=== PATIENT | female | born 1955 | race Caucasian/White ===

== ENCOUNTER 2019-11-30 09:56 | Inpatient (IN) | payer MEDICAID, SELFPAY ==
[2019-11-30] VITALS (45 sets, daily range): BP systolic 111–192; BP diastolic 67–109; PULSE 57–111; RESP 14–34; TEMP 36.4–36.8; O2SAT 89–100; BMI 22.3
--- NOTE | 2019-11-30 10:02 | ECG_ITS ---
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 Measurements Intervals [place] Rate: 93 P: 57 ND: 135 QRS: 17 QRSD: 81 T: 43 QT: 325 QTc: 405 Interpretive Statements SINUS RHYTHM POSSIBLE LEFT ATRIAL ENLARGEMENT [-0.1mV P WAVE IN V1/V2] POSSIBLE RIGHT VENTRICULAR CONDUCTION DELAY [RSR (QR) IN V1/V2] No previous ECG available for comparison Electronically Signed On 11-30-2019 19:47:21 CDT by Dafne Ivy M.D. [id number] f
--- NOTE | 2019-11-30 10:02 | XRR_ITS ---
PROCEDURE INFORMATION: Exam: XR Chest, 1 View Exam date and time: 11/30/2019 10:12 AM Age: 64 years old Clinical indication: Chest pain; Type not specified TECHNIQUE: Imaging protocol: XR of the chest Views: 1 view. COMPARISON: No relevant prior studies available. FINDINGS: Lungs: No lung consolidation or pulmonary edema. Pleural space: No pleural effusion or pneumothorax. Heart/Mediastinum: The cardiac silhouette is not enlarged. The mediastinal contours are normal. Bones/joints: Minimal curvature of the upper thoracic spine convex to the left. XR/XR chest 1V portable [id number] IMPRESSION: No acute abnormality.
[2019-11-30 10:41] LABS: Basophils # 0.1 10^3/uL (0.0-0.1); Basophils % 1.1 %; Eosinophils # 0.2 10^3/uL (0.0-0.8); Eosinophils % 2.2 %; Hematocrit 45.7 % (37.0-47.0); Hemoglobin 14.7 g/dL (11.5-15.3); Lymphocytes # 2.3 10^3/uL (0.8-4.8); Lymphocytes % 26.8 %; Mean Corpuscular HGB Conc 32.2 g/dL (30.0-36.0); Mean Corpuscular Hemoglobin 28.4 pg (28.0-34.0); Mean Corpuscular Volume 88.2 fL (81-99); Mean Platelet Volume 11.5 fL (7.4-10.4); Monocytes # 0.5 10^3/uL (0.2-0.9); Neutrophils # 5.36 10^3/uL (1.8-7.7); Neutrophils % 63.4 %; Nucleated Red Blood Cells % 0 %; Platelet Count 217 10^3/cmm (130-400); Red Blood Count 5.18 10^6/uL (4.1-5.3); White Blood Count 8.5 10^3/uL (4.0-10.0)
--- NOTE | 2019-11-30 10:42 | W.ED.CHESTPA ---
HPI - Chest Pain General: Chief Complaint: Chest Pain Stated Complaint: chest pain Time Seen by Provider: 11/30/19 10:01 History of Present Illness: HPI narrative: 64-year-old female presents emergency room with complaints of chest pain just intermittently for the last 3 months.. She notes worsening of her chest pain with exertion she usually can walk something short of 100 yards and then will start to get significant squeezing pressure sensation. She takes nitro been taking 2 to 3/day it does relieve her chest pain she has been taking baby aspirin but at times displaces it under her tongue. She does know And she is not been seeing anyone recently either for primary care or for cardiology. She was previously on antihypertensive and I hyperlipidemic's as well as Plavix and stopped all those about 1 week after getting a stent. Her last stent was about 2 years ago. MD complaint: chest heaviness and chest discomfort Pertinent past history: coronary artery disease, prior [place] and [employer] Onset (ago): month(s) (3) Timing of current episode: episodic and increasing Prior episodes: Yes Onset: during exertion Pain location: substernal and left chest Pain radiation: left arm, back and left shoulder Severity: severe Quality: tightness and heaviness Relieving factors: nitroglycerin and rest Exacerbating factors: exertion Associated symptoms: Reports diaphoresis, dyspnea and nausea; Deny abdominal pain, fever(s), leg edema, palpitations, sense of impending doom, syncope or vomiting Treatment prior to arrival: aspirin and nitroglycerin Review of Systems Const: Reports: diaphoresis; Denies: fever(s) ENMT: Denies: throat pain, ear or mastoid pain, nasal discharge or nasal congestion Card: Denies: palpitations or syncope Resp: Reports: dyspnea GI: Reports: nausea; Denies: abdominal pain or vomiting : Denies: flank pain, difficulty voiding, dysuria, urinary frequency or urinary urgency Skin/Breast: Denies: rash or pruritus PFSH ED PFSH: Medical History (Updated 11/30/19 @ 11:38 by Jose Rafael Jackson DO) Coronary artery disease Coronary stent patent Hyperlipidemia Hypertension Social History (Updated 11/30/19 @ 10:46 by Jose Rafael Jackson DO) Smoking and tobacco status: current every day smoker Alcohol intake: never Physical Exam Const: COMMON NORMALS: average body habitus, patient oriented x3 and alert GENERAL APPEARANCE: cooperative, comfortable, well kempt and well developed NUTRITIONAL APPEARANCE: obese ORIENTATION/CONSCIOUSNESS: Yes awake, Yes oriented to person and Yes oriented to place Neck/C-Spine: COMMON NORMALS: no meningeal signs Resp: COMMON NORMALS: normal respiratory effort, No retractions, No use of accessory muscles and clear to auscultation bilaterally AUSCULTATION: clear to auscultation bilaterally Cardio: COMMON NORMALS: regular rate and regular rhythm RATE: regular rate RHYTHM: regular rhythm HEART SOUNDS: no murmurs GI: COMMON NORMALS: Normal to inspection, nondistended, normoactive bowel sounds present, Soft to palpation and No hepatosplenomegaly present PALPATION: Yes Soft to palpation and Yes No hepatosplenomegaly present : COMMON NORMALS: Yes no CVA tenderness BLADDER/KIDNEY EXAM: Yes no CVA tenderness Back/Pelvis: COMMON NORMALS: no CVA tenderness LUMBAR SPINE/LOWER BACK: Yes normal to inspection Extremity: COMMON NORMALS: no clubbing, cyanosis or edema, no calf tenderness and no pedal edema Neuro: COMMON NORMALS: patient oriented x3 SENSORIUM/ORIENTATION: Yes alert, Yes oriented to person and Yes oriented to place MENINGEAL SIGNS: Yes no meningeal signs Psych: APPEARANCE: Yes well kempt Skin: COMMON NORMALS: no rashes or lesions noted and turgor normal GENERAL SKIN EXAM: no rashes or lesions noted and turgor normal Course Vital Signs: Vital signs: Vital Signs Temperature 97.8 F 11/30/19 09:58 Pulse Rate 111 H 11/30/19 09:58 Respiratory Rate 18 11/30/19 09:58 Blood Pressure 181/85 11/30/19 09:58 Pulse Oximetry 94 11/30/19 09:58 MDM - Chest Pain MDM Narrative: Medical decision making narrative: She has escalating angina over quite an impressive period of time. We will put her on topical nitro give her IV Lopressor and oral Lopressor. Consult to Dr. Marin and will admit to him Lab Data: Labs: Lab Results 11/30/19 11/30/19 11/30/19 Range/Units 10:32 10:32 10:32 WBC 8.5 (4.0-10.0) 10^3/ uL RBC 5.18 (4.1-5.3) 10^6/u L Hgb 14.7 (11.5-15.3) g/dL Hct 45.7 (37.0-47.0) % MCV 88.2 (81-99) fL MCH 28.4 (28.0-34.0) pg MCHC 32.2 (30.0-36.0) g/dL RDW 14.0 (12.1-15.1) % Plt Count 217 (130-400) 10^3/c mm MPV 11.5 H (7.4-10.4) fL Neut % (Auto) 63.4 % Lymph % (Auto) 26.8 % [place] % (Auto) 6.0 % Eos % (Auto) 2.2 % Baso % (Auto) 1.1 % Neut # (Auto) 5.36 (1.8-7.7) 10^3/u L Lymph # (Auto) 2.3 (0.8-4.8) 10^3/u L [place] # (Auto) 0.5 (0.2-0.9) 10^3/u L Eos # (Auto) 0.2 (0.0-0.8) 10^3/u L Baso # (Auto) 0.1 (0.0-0.1) 10^3/u L Nucleated RBC % (a uto) 0 % Nucleated RBCs # 0.0 /100WBC Sodium 142 (136-145) mmol/L Potassium 4.2 (3.5-5.1) mmol/L Chloride 105 (98-107) mmol/L Carbon Dioxide 25 (22-29) mmol/L Anion Gap 16.2 (5-19) Creatinine 0.6 (0.5-0.9) mg/dL GFR Calculation 100.3 (90-130) mL/min Glucose 87 (65-115) mg/dL Calcium 9.4 (8.5-10.5) mg/dL Total Bilirubin 0.3 (0.15-1.2) mg/dL AST 5 (0-32) U/L ALT < 5 (0-33) U/L Troponin T Baselin e 15 H (0-10) ng/L Discharge Plan Discharge Patient Disposition: Admitted As Inpatient Clinical Impression: Angina pectoris, Hypertension, Coronary artery disease, Hyperlipidemia Condition: Stable Coding Level of Care Code ED Auditing Control Clerk for Chg Fwd Exam Comprehensive
[2019-11-30] MEDS: enoxaparin 60 mg/0.6 mL Syringe SUBCUT (10:43)
[2019-11-30] MEDS: nitroglycerin 1 gm/inch oint Pkt 0.5 INCH TOPICAL (10:43)
[2019-11-30 11:05] LABS: Alanine Aminotransferase < 5 U/L (0-33); Aspartate Amino Transferase 5 U/L (0-32); Calcium 9.4 mg/dL (8.5-10.5); Carbon Dioxide 25 mmol/L (22-29); Glomerular Filtration Rate 100.3 mL/min (90-130); Glucose 87 mg/dL (65-115); Total Bilirubin 0.3 mg/dL (0.15-1.2)
[2019-11-30 11:07] LABS: Troponin(5th) Baseline 15 ng/L (0-10)
[2019-11-30 11:10] LABS: Anion Gap 16.2 (5-19); Chloride 105 mmol/L (98-107); Potassium 4.2 mmol/L (3.5-5.1); Sodium 142 mmol/L (136-145)
--- NOTE | 2019-11-30 12:01 | PM.HP ---
Providers/Chief Complaint Admitting Physician: Dmitry Bazan MD Chief Complaint: chest pain History of Present Illness Ness Nesbitt is a 64 year old female with past medical history of coronary artery disease status post PCI of OM in [place] about 2 years ago, smoking, hypertension, hyperlipidemia is here for worsening chest pain. Patient does not take any home medications other than aspirin. According to the patient she started noticing chest pain about 2 to 3 months ago. This has been worsening in frequency and intensity. Now she can hardly walk a few feet before getting chest pain. She had intermittent 2-3 episodes of severe chest pain this morning when she decided to come to the emergency room. She describes the pain as substernal, squeezing severe pressure that radiates to the left arm. Her blood pressure was found to be uncontrolled on presentation and was 181/85 mmHg. Patient continues to smoke daily. She denies any bleeding problems. Her initial troponin is that event is 15. EKG does not show acute ischemic changes. Review of Systems Narrative: CONSTITUTIONAL: No fever chills weight loss or gain or night sweats. [] HEENT: Normocephalic, atraumatic.[] RESPIRATORY: No cough, sputum, hemoptysis or wheezing.[] CARDIOVASCULAR: No shortness of breath, chest pain, PND, orthopnea, lower extremity edema, presyncope or syncope. [] GI: no nausea vomiting diarrhea. [] APPEALS COORDINATOR: No numbness, tingling, weakness or loss of function in any part of the body. [] MUSCULOSKELETAL: No knee or joint pain or rashes. [] Medications/Allergies Home Medications Medication Instructions Recorded Confirmed Last Taken Type No Known Home Medications 11/30/19 11/30/19 Unknown History Allergies Allergy/AdvReac Type Severity Reaction Status Date / Time No Known Allergies Allergy Verified 11/30/19 10:00 PFSH Acute PFSH: Medical History Coronary artery disease Coronary stent patent Hyperlipidemia Hypertension Social History Smoking and tobacco status: current every day smoker Alcohol intake: never Vitals/I&O/Wt Last Vital Signs Temp 97.8 F 11/30/19 09:58 Pulse 111 H 11/30/19 09:58 Resp 18 11/30/19 09:58 BP 181/85 11/30/19 09:58 Pulse Ox 94 11/30/19 09:58 Weight last 48 hrs Weight 130 lb Physical Exam Narrative: EXAM NARRATIVE: GENERAL: Patient is alert, awake and oriented x3. [] NECK: No jugular vein distension. [] HEENT: No cyanosis. No icterus. No pallor. [] HEART: Regular S1 and S2. No murmur, rub or gallop. [] LUNGS: Clear to auscultate bilaterally. [] ABDOMEN: Soft, nontender and nondistended. Positive bowel sounds. No guarding, rebound or tenderness. [] CENTRAL NERVOUS SYSTEM: Grossly nonfocal. [] EXTREMITIES: Lower extremities with no edema bilaterally. Pulses palpable in the lower extremities, both dorsalis pedis and posterior tibial. [] Data : 11/30/19 10:32 11/30/19 10:32 A&P Assessment and plan (1) Unstable angina: Status: Acute (2) Hyperlipidemia: Status: Acute (3) Coronary artery disease: Status: Acute (4) Hypertension: Status: Acute (5) Tobacco abuse: Status: Acute Patient is describing typical chest pain that is worsening in intensity and frequency. Has been having on and off chest pain since morning today. Currently she is chest pain-free. Her symptoms are concerning for unstable angina. Her troponin is negative. EKG does not show acute ischemic changes. We will recommend proceeding with coronary angiography with possible intervention as her symptoms are consistent with unstable angina. I had a detailed discussion about risk and benefits of the procedure. I described the risks including bleeding, infection, abnormal heart rhythm, kidney function worsening, heart attack, stroke or . Patient understands the risks and benefits and wants to proceed with the procedure. N.p.o. except meds. We will proceed with coronary angiography today. High intensity statin therapy. Continue aspirin. We will initiate metoprolol 50 mg twice daily. Order echocardiogram. I have strongly recommended quitting smoking. Patient verbalized understanding. Attestations Medical Necessity Statement*: Care expected to cross 2 midnights. Patient has unstable angina and will be needing coronary angiography with possible intervention. Coding Level of Care Code Acute Pmo Consultant for [facility] Fwd Diagnoses Unstable angina I20.0 Hyperlipidemia E78.5 Coronary artery disease I25.10 Hypertension I10 Tobacco abuse Z72.0
--- NOTE | 2019-11-30 12:02 | ECG_ITS ---
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 Measurements Intervals [place] Rate: 72 P: 56 IA: 132 QRS: 15 QRSD: 86 T: 36 QT: 368 QTc: 403 Interpretive Statements SINUS RHYTHM POSSIBLE LEFT ATRIAL ENLARGEMENT [-0.1mV P WAVE IN V1/V2] POSSIBLE RIGHT VENTRICULAR CONDUCTION DELAY [RSR (QR) IN V1/V2] Compared to ECG 11/30/2019 10:07:43 No significant changes Electronically Signed On 11-30-2019 20:15:18 CDT by Dafne Ivy M.D. [id number]
[2019-11-30] MEDS: metoprolol tartrate 25 mg Tablet PO (12:50)
[2019-11-30] MEDS: diphenhydrAMINE 50 mg Capsule PO (12:51)
[2019-11-30] MEDS: aspirin 325 mg Tablet PO (12:51)
[2019-11-30] MEDS: metoprolol tartrate 1 mg/1 mL SDV 5 mL 5 MG IV (12:52)
[2019-11-30] MEDS: D5-NS 0.45% + KCL 20 mEq 20 MEQ/1,000 ML BAG 100 MEQ IV (12:53)
[2019-11-30] MEDS: sodium chloride 0.9% 1,000 ML 50 ML IV (13:11)
[2019-11-30 13:19] LABS: Troponin 5 2HR 15.16 ng/L (0-10); Troponin 5 2HR Delta 0.16 ABS# (0-10)
[2019-11-30 14:00] LABS: Blood Urea Nitrogen 7 mg/dL (8-23); Osmolality Calculated 291 mOsm/kg (285-295)
[2019-11-30 14:01] LABS: Albumin Level 0.2 g/dL (3.5-5.2); Alkaline Phosphatase < 5 IU/L (35-105); Globulin 5.8 g/dL (1.3-4.6)
--- NOTE | 2019-11-30 16:14 | XACV_ITS ---
Exam Room: [facility] Ht: 163 cm Wt: 59 kg BSA: 1.64 m2 Gender: Female : 1955 Any Known Allergies: No known allergies Exam Priority: Routine Procedure(s): Procedure Description: Diagnostic procedure Procedure Description: PCI procedure Procedure Description: Drug Eluting Coronary Stent Procedure Description: PTCA Procedure Description: Miscellaneous Procedure Description: ACT Procedure Description: Coronary Angiography Diagnostic Cath Status: Urgent Diagnostic Findings * CX has mild mid 10% stenosis. First OM branch has a patent stent.. * Proximal Left Anterior Descending Coronary Artery: Severe 95% stenosis, RANIJT: 0 flow. There is a medium sized diagonal artery that has proximal to mid 70% stenosis.. * mRCA: Mild 30 % stenosis, RANJIT: 3 flow. * LM has 0% stenosis. * 1st Diag: Moderate 70% stenosis, RANJIT: 3 flow. * Coronary angiography shows right dominance. PCI Status: Urgent PCI Indication: Other Interventional Findings * We engaged the left main artery using a XB 3.0 guide catheter. A 0.014 run-through guidewire was used to cross the lesion and was placed on the distal LAD. We used a 2.5 x 12 mm semi-compliant balloon to predilate the proximal LAD stenosis. This was followed by placement of a 3.0 x 18 mm resolute Hima drug-eluting stent. We postdilated the stent using a 3.25 x 15 mm NC balloon. At this time final angiogram was obtained that showed RANJIT-3 flow, excellent stent expansion and no residual stenosis. * Proximal Left Anterior Descending Coronary Artery: 95% stenosis treated with AB TREK 2.50X12 RX BALLOON, T Shawn HIMA 3.0X18 JEFF, and MDT ISAURO EUPHORA RX [id number] BALLOON. 0% residual stenosis, RANJIT: 3 flow. Conclusions 1. Diagonal artery is small to medium sized. Recommend managing medically. 2. There is severe coronary artery disease with two vessel disease. 3. Proximal Left Anterior Descending Coronary Artery was treated with two Balloon and Drug Eluting Stent. Recommendations * Admit to CSU. * Aspirin and Plavix for 1 year. * High intensity statin therapy. * Initiating beta-yuniel and lisinopril. * Medical therapy for small to medium sized diagonal artery. * Order echocardiogram. Pressures Phase:Rest AO : 155 / 72 ( 104 ) @ 12:04:00 PM 139 / 69 ( 100 ) @ 12:08:00 PM 129 / 80 ( 103 ) @ 12:13:00 PM Clinical Evaluation EBL: 5mL-10mL Procedural Details Procedure Consent Obtained. Pre-Procedure Time Out. Identified patient by full name and date of as verbalized by the patient/guarantor. Does the consent match the physician's order: Yes. Accurate & Complete Informed Consent: Yes. Inpatient/Outpatient History & Physical on Chart: Yes. If H&P is completed, is and addenduem needed: No; If yes, is the addendum complete: N/A. Visualize and Verify Site with Patient/Guarantor: N/A. Relevant Radiology Images available: N/A. Pre-op teaching completed and patient verbalized understanding. The risks, benefits, and alternatives of sedation and/or procedure were discussed by physician. The patient agrees to continue. Procedure started. [facility] Clinical Fraility Score: 3: Managing Well. 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 Chest Pain Symptom Assessment: Typical Angina Symptoms. Cardiovascular Instability: No. Correct patient, site and procedure confirmed by cath team. PERRLA. Strong, equal hand braille transcriber bilaterally. Lungs clear x 5 lobes. IV Site on Arrival: 20 gauge in the right anticubital. IV Fluids: 0.9% NaCl at KVO. 0 mL infused prior to manufacturing laborer. Pre Procedural Pulses: bilateral radial was 3+. Oxygen started at 2liters/min via nasal canula. Baseline sample Acquired. HR: 61 BPM. Physician arrived. Equipment: 6F - Radial. Cardiac Cath Pack. ACIST Manifold Kit Model BT 2000. Heparinized Saline (2 units/mL), 1000 mL bag. bilateral groins was prepped with chloroprep then draped in the usual sterile fashion. right radial was prepped with chloroprep then draped in the usual sterile fashion. Baseline sample Acquired. HR: 58 BPM. Physician scrubbed in. Immediate Pre-Procedure Time Out. Correct Patient: Yes; Correct Procedure: Yes; Correct Site: Yes; Correct Patient Position: Yes; Correct Supplies: Yes; Dried Flammable Prep: Yes; Blood Products Available: N/A;. Lidocaine 1% infiltrated to the right radial. Arterial access obtained. A 5 indian TIG catheter in over wire. Multiple views taken of left coronary artery. Catheter redirected to the RCA. Catheter out. Inventory is CRD 6FR XB 3 GUIDE. 6 indian XB 3 guide catheter was inserted over the wire. ACT drawn. Results 247 seconds. Therapeutic limits - pre-heparin administration 90-150 seconds and monitoring heparin during a vascular procedure >250 seconds. 4 fr TR 120 cm Straight Glidecath inserted through the guide catheter over the wire. Glidecath, wire and Guide Catheter out. Pt has arterial spasms. Physician unable to use radial approach due to arterial spasms. Moving to femoral approach. Lidocaine 1% infiltrated to the right groin. Arterial access obtained with micropuncture set. 6 indian XB 3 guide catheter was inserted over the wire. Runthrough guidewire was advanced through the guide catheter to lesion in the mid LAD. Inflation number : 1 A AB TREK 2.50X12 RX BALLOON was prepped and advanced across the Prox LAD , then inflated to 12 ESTHER for 0:20 seconds. Inflation number: 2 The AB TREK 2.50X12 RX BALLOON was reinflated across the Prox LAD, to 0 ESTHER for 0:00 seconds. Inflation Number : 3 A GINNA Escobar HIMA 3.0X18 JEFF -Lot Number# [id number] exp date 07/13/2021 was prepped and advanced across the Prox LAD. The stent was deployed at 12 ESTHER for 0:17 seconds. Inflation number : 4 Agusto BOX EUPHORA RX [id number] BALLOON was prepped and advanced across the Prox LAD , then inflated to 16 ESTHER for 0:14 seconds. Balloon out. Stent balloon out over wire. A TR 120 cm Straight Glidecath 4 Fr was advanced over the wire and used for. Results checked. Wire out. Guide catheter out. ACT drawn. Results 193 seconds. Therapeutic limits - pre-heparin administration 90-150 seconds and monitoring heparin during a vascular procedure >250 seconds. Physician scrubbed out. A TR Band was successful obtaining hemostatsis at the Right Radial artery insertion site. A Suture was successful obtaining hemostatsis at the Right Femoral artery insertion site. TR band placed. Hemostasis obtained. Sheath(s) sutured into position with 2-0 silk and sterile 4x4's and Op-site applied over the site. No oozing or signs and symptoms of hematoma noted. Arterial sheath flushed and connected to tranducer and pressure bag with heparinized saline. Post Procedure: Pulses reassessed and unchanged. PERRLA. Strong, equal hand braille transcriber bilaterally. No VTE prophylaxis required. Medication's Wasted: Nitro = 49.45 mg. Total IV fluids: 350 mL. Post-op diagnosis: severe prox LAD stenosis. Complications: none. PCI Indication: unstable angina. Estimated blood loss: 5mL-10mL. Procedure completed. Patient transferred by bed to 1st floor. Vital chart was stopped. Access Site Site: Right Radial artery Sheath Size: 6 Fr Hemostasis Method: TR Band Hemostasis Success: Successful Site: Right Femoral artery Sheath Size: 6 Fr Hemostasis Method: Suture Hemostasis Success: Successful Procedure Medications Start: 4:28 PM Stop: 4:28 PM Medication: Versed Amount: 1 mg Route: I.V. Start: 4:29 PM Stop: 4:29 PM Medication: Fentanyl Amount: 50 mcg Route: I.V. Start: 4:37 PM Stop: 4:37 PM Medication: Nitrogylcerin Amount: 200 mcg Route: I.A. Start: 4:37 PM Stop: 4:37 PM Medication: Versed Amount: 1 mg Route: I.V. Start: 4:37 PM Stop: 4:37 PM Medication: Fentanyl Amount: 50 mcg Route: I.V. Start: 4:51 PM Stop: 4:51 PM Medication: Nitrogylcerin Amount: 200 mcg Route: I.A. Start: 4:54 PM Stop: 4:54 PM Medication: Nitrogylcerin Amount: 150 mcg Route: I.A. Start: 5:03 PM Stop: 5:03 PM Medication: Heparin Amount: 2000 units Route: I.V. Start: 5:29 PM Stop: 5:29 PM Medication: Plavix Amount: 600 mg Route: P.O. Start: 5:29 PM Stop: 5:29 PM Medication: Heparin Amount: 2000 units Route: I.V. Start: 4:40 PM Stop: 4:40 PM Medication: Heparin Amount: 5000 units Route: I.V. I, the attending physician, have reviewed and verified all procedure medications. Yes, all medications given per verbal order History/Risk Factors Hypertension: Yes Dyslipidemia: Yes Peripheral Arterial Disease (PAD): No Myocardial Infarction (NC): Yes Obesity: No Renal Disease: No Tobacco Use: Current/Recent(w/in 1 year) Prior Interventions PCI: Yes CABG: No Valve Surgery: No Report Signatures Finalized by Dmitry Bazan MD on 12/06/2019 05:14 PM
--- NOTE | 2019-11-30 16:27 | W.PM.OPSUD ---
Surgery/Procedure H&P Update DATE OF PROCEDURE: November 30, 2019 DATE H&P PERFORMED: 11/30/19 H&P UPDATE INFORMATION: I have reviewed H&P completed within last 30 days, I have examined patient prior to procedure and No changes to prior documentation PREOP DIAGNOSIS: Unstable angina PRIMARY INDICATION FOR PROCEDURE: Unstable angina PLANNED PROCEDURE: Coronary angiography/left heart cath +/-percutaneous coronary intervention PATIENT REASSESSED PRIOR TO SEDATION, WITH NO CHANGE NOTED: Yes PHYSICAL EXAM: alert, oriented x 3 and clear to auscultation bilaterally AIRWAY EVAL/ANESTHESIA PLAN: normal airway, ASA II, Risks, benefits & alternatives of sedation and/or procedure discussed and Patient agrees to continue as planned
--- NOTE | 2019-11-30 17:45 | PC.NURSE ---
Patient arrived to CSU from collaborative physician at 1740. 2 nurse verification of R wrist and R groin, asymptomatic, no hematoma noted. TR band intact to R wrist with 16 ml of air. Sheath connected to pressure bag in R groin. Dr. Bazan and patient sister at bedside. Physician updated patient and family of the procedure and stent placement. Verbal order received to initiate patient on NS at 100 and discontinue fluid orders from ER. RBVO. Nurse to continue to monitor.
--- NOTE | 2019-11-30 18:00 | PC.NURSE ---
1800 Dr. Bazan notified patient is reporting chest pain at 8/10, describes as heart burn in left mediastinal region. Physician gave verbal order to obtain 12 lead EKG, administer morphine and nitro SL. RBVO. 1805 Dr. Bazan read EKG at bedside. ST elevation noted. STEMI Alert called. Nitro and morphine administered. Physician gave verbal order to start patient on nitro gtt starting at 50 mcg/min, titrate per protocol. Patient placed on 2L O2 NC. Nurse to continue to monitor.
--- NOTE | 2019-11-30 18:05 | ECG_ITS ---
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 Measurements Intervals [place] Rate: 69 P: 68 DE: 142 QRS: 55 QRSD: 80 T: 62 QT: 361 QTc: 387 Interpretive Statements SINUS RHYTHM WITH MARKED SINUS ARRHYTHMIA POSSIBLE LEFT ATRIAL ENLARGEMENT [-0.1mV P WAVE IN V1/V2] LOW QRS VOLTAGE IN PRECORDIAL LEADS [QRS DEFLECTION < 1.0 mV IN CHEST LEADS] POSSIBLE RIGHT VENTRICULAR CONDUCTION DELAY [RSR (QR) IN V1/V2] MARKED ST ELEVATION, CONSIDER ANTERIOR INJURY [MARKED ST ELEVATION W/O NORMALLY INFLECTED T WAVE IN V2-V5] ACUTE SD Compared to ECG 11/30/2019 12:09:52 Low QRS voltage now present ST (T wave) deviation now present Myocardial infarct finding now present Electronically Signed On 11-30-2019 19:37:32 CDT by Dafne Ivy M.D. [id number]
[2019-11-30] MEDS: nitroglycerin 0.4 mg sublingual Tablet SUBLINGUAL (18:09)
[2019-11-30] MEDS: morphine 4 mg/mL SDV 1 mL 2 MG IVP (18:12)
--- NOTE | 2019-11-30 18:14 | XACV_ITS ---
Exam Room: [facility] Ht: 163 cm Wt: 59 kg BSA: 1.64 m2 Gender: Female : 1955 Any Known Allergies: No known allergies Exam Priority: Routine Procedure(s): Procedure Description: Diagnostic procedure Procedure Description: PCI procedure Procedure Description: Drug Eluting Coronary Stent Procedure Description: PTCA Diagnostic Cath Status: Emergency Diagnostic Findings * Indication: Patient had underwent proximal LAD PCI with drug-eluting stent x1. About 30 minutes post procedure she started having chest pain again. Emergent EKG was performed that showed anterior leads ST elevation. She was emergently taken back to the Identification Printing Machine Setter to assess coronary arteries. * CX has mid vessel 30% stenosis. * RCA was not injected. * Proximal Left Anterior Descending Coronary Artery: Severe 100% stenosis, RANJIT: 0 flow. Stent was patent however at distal edge of stent there was 100% occlusion of LAD.. * LM has 0% stenosis. * Mid Left Anterior Descending Coronary Artery: Severe 100% stenosis, RANJIT: 0 flow. PCI Status: Emergency PCI Indication: STEMI - Immediate PCI for STEMI Interventional Findings * Left main artery was engaged using a XB 3.0 guide. A 0.014 run-through guidewire was used to cross the occluded LAD segment. Coronary angiogram at this point showed intimal flap at distal edge of recently placed LAD stent. Stent itself was patent. Artery had likely occluded from distal edge dissection from previous stent. We used a 2.5 x 8 mm semi-compliant balloon to predilate the stenosis. This was followed by placement of 3.0 x 18 mm resolute Hima drug-eluting stent. Dissection progressed further at distal edge of second stent. We placed another 2.75 x 12 mm resolute Zuni stent which covered the dissection completely. RANJIT-3 flow was restored in the artery with no residual stenosis. Newly placed stents were postdilated using a 3.0 x 8 mm NC balloon. At this time RANJIT-3 flow was restored. There was no residual stenosis or dissection noted. Patient was stable and left the Identification Printing Machine Setter in a stable condition.. * Proximal Left Anterior Descending Coronary Artery: 100% stenosis treated with AB TREK 2.50X8 RX BALLOON and MDT R HIMA 3.0X18 JEFF. 0% residual stenosis, RANJIT: 3 flow. * Mid Left Anterior Descending Coronary Artery: 100% stenosis treated with MDT R HIMA 2.75X12 JEFF and MDT NC EUPHORA RX 3.89H30XW BALLOON. 0% residual stenosis, RANJIT: 3 flow. Conclusions 1. Abrupt vessel closure of proximal to mid LAD likely secondary to distal edge dissection of recently placed proximal LAD stent. 2. Proximal Left Anterior Descending Coronary Artery was treated with Balloon and Drug Eluting Stent. 3. Mid Left Anterior Descending Coronary Artery was treated with Drug Eluting Stent and Balloon. Recommendations * Transfer to CSU. * Aspirin and Plavix for at least 1 year. * High intensity statin therapy. * Lisinopril and beta-yuniel. * Order echocardiogram. Interventional RX Recommendation: PCI w/o planned CABG Diagnostic RX Recommendation: PCI w/o planned CABG Anticoagulation: Heparin Pressures Phase:Rest AO : 174 / 88 ( 121 ) @ 1:57:00 PM 143 / 76 ( 106 ) @ 2:06:00 PM 104 / 55 ( 74 ) @ 2:24:00 PM 124 / 73 ( 94 ) @ 2:28:00 PM / ( -23 ) @ 2:29:00 PM Clinical Evaluation EBL: 5mL-10mL Procedural Details Procedure Consent Obtained. Pre-Procedure Time Out. Identified patient by full name and date of as verbalized by the patient/guarantor. Does the consent match the physician's order: Yes. Accurate & Complete Informed Consent: Yes. Inpatient/Outpatient History & Physical on Chart: Yes. If H&P is completed, is and addenduem needed: No; If yes, is the addendum complete: N/A. Visualize and Verify Site with Patient/Guarantor: N/A. Relevant Radiology Images available: N/A. Pre-op teaching completed and patient verbalized understanding. The risks, benefits, and alternatives of sedation and/or procedure were discussed by physician. The patient agrees to continue. Procedure started. PERRLA. Strong, equal hand country printer bilaterally. Lungs clear x 5 lobes. IV Site on Arrival: 20 gauge in the right anticubital. Physician scrubbed in. Immediate Pre-Procedure Time Out. Correct Patient: Yes; Correct Procedure: Yes; Correct Site: Yes; Correct Patient Position: Yes; Correct Supplies: Yes; Dried Flammable Prep: Yes; Blood Products Available: N/A;. Pt arrived with 6 fr sheath in right femoral artery. Baseline sample Acquired. HR: 54 BPM. Inventory is CRD 6FR XB 3 GUIDE. 6 kazakh XB 3 guide catheter was inserted over the wire. Runthrough guidewire was advanced through the guide catheter to lesion in the prox LAD. Inflation number : 1 A AB TREK 2.50X8 RX BALLOON was prepped and advanced across the Prox LAD , then inflated to 12 ESTHER for 0:11 seconds. Inflation number: 2 The AB TREK 2.50X8 RX BALLOON was reinflated across the Prox LAD, to 12 ESTHER for 0:14 seconds. Inflation number: 3 The AB TREK 2.50X8 RX BALLOON was reinflated across the Prox LAD, to 12 ESTHER for 0:12 seconds. Balloon pulled back. Results checked. Balloon out. Inflation Number : 4 A MDT R HIMA 3.0X18 JEFF -Lot Number# [id number] exp date 07/13/2021 was prepped and advanced across the Prox LAD. The stent was deployed at 12 ESTHER for 0:22 seconds. Stent balloon out over wire. Inflation Number : 1 A MDT R HIMA 2.75X12 JEFF -Lot Number# [id number] exp date was prepped and advanced across the Mid LAD. The stent was deployed at 12 ESTHER for 0:16 seconds. Stent balloon out over wire. Results checked. ACT drawn. Results seconds. Therapeutic limits - pre-heparin administration 90-150 seconds and monitoring heparin during a vascular procedure >250 seconds. Inflation number : 2 A MDT NC EUPHORA RX 3.21W89NM BALLOON was prepped and advanced across the Mid LAD , then inflated to 12 ESTHER for 0:07 seconds. Inflation number: 3 The MDT NC EUPHORA RX [id number] BALLOON was reinflated across the Mid LAD, to 12 ESTHER for 0:06 seconds. Balloon out. Wire out. Stent balloon and wire out. Guide catheter out. Physician scrubbed out. Post Procedure: Pulses reassessed and unchanged. PERRLA. Strong, equal hand country printer bilaterally. No VTE prophylaxis required. Medication's Wasted: Heparin = 1000 units. Total IV fluids: 100 mL. PCI Indication: STEMI. Post-op diagnosis: STEMI. Complications: none. Estimated blood loss: 5mL-10mL. Procedure completed. Patient transferred by bed to 1st floor. Vital chart was stopped. Procedure Medications Start: 6:54 PM Stop: 6:54 PM Medication: Zofran (ondansetron) Amount: 4 mg Route: I.V. Start: 6:56 PM Stop: 6:56 PM Medication: Nitrogylcerin Amount: 20 mcg/min Route: I.V. drip Start: 6:58 PM Stop: 6:58 PM Medication: Aggrastat 12.5 mg/250 mL Amount: 30 ml Route: I.V. bolus Start: 6:58 PM Stop: 6:58 PM Medication: Aggrastat 12.5 mg/250 mL Amount: 10.8 ml/hr Route: I.V. drip Start: 7:08 PM Stop: 7:08 PM Medication: Heparin Amount: 5000 units Route: I.V. I, the attending physician, have reviewed and verified all procedure medications. Yes, all medications given per verbal order History/Risk Factors Hypertension: Yes Dyslipidemia: Yes Peripheral Arterial Disease (PAD): No Myocardial Infarction (WA): Yes Obesity: No Renal Disease: No Tobacco Use: Current/Recent(w/in 1 year) Prior Interventions PCI: Yes CABG: No Valve Surgery: No Report Signatures Finalized by Dmitry Bazan MD on 12/06/2019 05:32 PM
[2019-11-30] MEDS: nitroglycerin drip 50 MG/250 ML PREMIX 15 MG IV (18:23)
--- NOTE | 2019-11-30 18:30 | PC.NURSE ---
Patient states she has to urinate. Verbal order received from Dr. Bazan to place urinary catheter for prolonged immobilization, RBVO.
[2019-11-30 19:14] LABS: Troponin 5 6HR 15.23 ng/L (0-10); Troponin 5 6HR Delta 0.23 ng/L (0-12)
[2019-11-30] MEDS: sodium chloride 0.9% 1,000 ML 100 ML IV (19:58)
[2019-11-30] MEDS: atorvastatin 40 mg Tablet PO (20:05)
--- NOTE | 2019-11-30 20:13 | PC.NURSE ---
Addendum entered by Lisa Deshpande RN 11/30/19 20:48: Patient educated on post-cath activity restrictions and verbalized understanding. 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 Patient does not have any complaints at this time. VSS. TR band to right wrist and sheath to right groin. Sites look WNL. Pedal and radial pulses present. Skin color and temp WNL. No drainage or hematoma noted at this time. Will monitor.
--- NOTE | 2019-11-30 20:53 | PC.NURSE ---
quality control lab technician nurse started Aggrastat drip at 0.15 mcg/kg/min (10.8 ml/hr) during bedside report around 1999. Dr. Bazan came in room to see patient and ordered to keep Aggrastat drip running for 6 hours from the time it was started.
--- NOTE | 2019-11-30 21:58 | ECG_ITS ---
[facility] Test Date: 2019-12-01 Pat Name: Ness Nesbitt Department: Room: 105 Gender: Female Fishing Vessel Operator: yareli WHITFIELD: 1955 Requested By: Dmitry Bazan Order Number: [id number] Farhat MD: Dmitry Bazan M.D. Measurements Intervals [place] Rate: 69 P: 70 TN: 117 QRS: 55 QRSD: 78 T: 71 QT: 378 QTc: 407 Interpretive Statements SINUS RHYTHM WITH SHORT TN INTERVAL POSSIBLE RIGHT VENTRICULAR CONDUCTION DELAY [RSR (QR) IN V1/V2] ST DEVIATION AND MODERATE T-WAVE ABNORMALITY, CONSIDER ANTERIOR ISCHEMIA [-0.1+ mV T WAVE IN V3/V4] Compared to ECG 12/01/2019 01:43:17 Short TN interval now present T-wave abnormality now present Possible ischemia now present Electronically Signed On 12-01-2019 13:21:51 CDT by Dmitry Bazan M.D. [email or web address] Fundarroy[facility].[employer]/store/OM/[id number]
--- NOTE | 2019-11-30 23:10 | PM.MISC ---
Miscellaneous Note Purpose of Documentation: Post procedure event Note: Patient was brought to labor law professor for coronary angiography. Proximal LAD showed severe 80-90% stenosis that was the culprit for unstable angina. Patient underwent successful revascularization with DESx 1. Patient left labor law professor in stable condition. On the floor, she started complaining of chest pain. An emergent EKG was obtained that showed ST elevation in the anterior leads. label drier was activated and patient was taken to the labor law professor emergently. Coronary angiogram showed occlusion of LAD at the distal edge of the stent. After crossing the occlusion with a guidewire, angiogram showed possible dissection at the distal edge of stent. Mechanism of vessel closure was stent thrombosis vs stent distal edge dissection. 2 more stents were put to cover the dissection completely. At the end of procedure, patient's chest pain resolved. Vessel had RANJIT 3 flow, no residual stenosis. I called cardiothoracic surgery and discussed the case with Dr Watkins who agreed with the management. Patient left labor law professor in stable condition.Patient currently on Aggrastat gtt.
[2019-11-30] MEDS: ondansetron 2 mg/ML SDV 2 mL 4 MG IVP (23:18)
[2019-11-30 23:32] LABS: Partial Thromboplastin Time > 250.0 SECONDS (23.9-36.7)
--- NOTE | 2019-11-30 23:41 | PC.NURSE ---
Dr. Mobley notified of PTT >250. Ordered to recheck in 2 hours and to not pull sheath until 45 or less.
[2019-12-01] VITALS (36 sets, daily range): BP systolic 100–169; BP diastolic 58–112; PULSE 62–105; RESP 16–28; TEMP 36.6–36.7; O2SAT 91–99
--- NOTE | 2019-12-01 00:09 | PC.NURSE ---
Neurovascular assessment done. Patient's post-cath sites still WNL and pulses present. Will monitor. VSS.
--- NOTE | 2019-12-01 00:48 | PC.NURSE ---
Patient vomited a brownish red vomit. It was not bright red, but a darker brown red. Dr. Mobley notified. Ordered to stop Aggrastat, get an EKG, and give Zofran. Aggrastat drip stopped at this time. Patient's IV to right AC infiltrated. IV was removed with catheter intact. New IV started in left forearm.
--- NOTE | 2019-12-01 00:54 | ECG_ITS ---
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 Measurements Intervals [place] Rate: 74 P: 68 MT: 126 QRS: 29 QRSD: 90 T: 60 QT: 377 QTc: 420 Interpretive Statements SINUS RHYTHM Compared to ECG 11/30/2019 18:09:49 Sinus arrhythmia no longer present ST (T wave) deviation no longer present Myocardial infarct finding no longer present Electronically Signed On 12-01-2019 13:19:57 CDT by Dmitry Bazan M.D. [email or web address].[facility]get[facility] Servicesouth central regional medical centerN[facility]iesun[facility]/store/OM/[id number]
[2019-12-01] MEDS: acetaminophen 325 mg Tablet 650 MG PO (01:58)
[2019-12-01] MEDS: ALPRAZolam 0.25 mg Tablet PO (01:58)
--- NOTE | 2019-12-01 02:01 | PC.NURSE ---
Dr. Mobley called back to check on patient. Patient is still nauseated but no more vomiting episodes at this time. Doctor notified that TR band is still in place due to oozing of blood when trying to remove air.
[2019-12-01 02:10] LABS: Partial Thromboplastin Time 37.3 SECONDS (23.9-36.7)
[2019-12-01 02:21] LABS: Blood Urea Nitrogen 15 mg/dL (8-23); Calcium 8.8 mg/dL (8.5-10.5); Carbon Dioxide 24 mmol/L (22-29); Chloride 106 mmol/L (98-107); Glucose 122 mg/dL (65-115); Osmolality Calculated 292 mOsm/kg (285-295); Sodium 140 mmol/L (136-145)
[2019-12-01 02:23] LABS: Anion Gap 14.2 (5-19); Potassium 4.2 mmol/L (3.5-5.1)
[2019-12-01 02:24] LABS: Basophils # 0.1 10^3/uL (0.0-0.1); Basophils % 0.5 %; Eosinophils # 0.1 10^3/uL (0.0-0.8); Eosinophils % 0.5 %; Hematocrit 42.6 % (37.0-47.0); Hemoglobin 13.4 g/dL (11.5-15.3); Lymphocytes # 1.8 10^3/uL (0.8-4.8); Lymphocytes % 10.2 %; Mean Corpuscular HGB Conc 31.5 g/dL (30.0-36.0); Mean Corpuscular Hemoglobin 28.3 pg (28.0-34.0); Mean Corpuscular Volume 89.9 fL (81-99); Mean Platelet Volume 11.6 fL (7.4-10.4); Monocytes # 0.9 10^3/uL (0.2-0.9); Monocytes % 5.4 %; Neutrophils # 14.23 10^3/uL (1.8-7.7); Neutrophils % 82.9 %; Nucleated Red Blood Cells % 0 %; Platelet Count 228 10^3/cmm (130-400); Red Blood Count 4.74 10^6/uL (4.1-5.3); White Blood Count 17.2 10^3/uL (4.0-10.0)
[2019-12-01 02:47] LABS: Partial Thromboplastin Time 35.4 SECONDS (23.9-36.7)
[2019-12-01] MEDS: morphine 4 mg/mL SDV 1 mL 2 MG IVP (03:57)
--- NOTE | 2019-12-01 04:27 | PC.NURSE ---
Addendum entered by Lisa Deshpande RN 12/01/19 06:18: *Doctor notified of right foot feeling cooler to touch than left foot.* Original Note: Arterial sheath pulled from right groin at 0300. Manual pressure held for [address] Mobley notified of 8 cm by 13 cm hematoma after sheath pull that began developing during sheath pull. ordered to hold manual pressure for another 10 minutes, which was done. He ordered femstop, but unable to locate a femstop in hospital. Doctor notified of this. When going back to check on patient, hemtoma had gotten larger from where it was previously marked. ICU nurse applied pressure to hematoma and it softened. Doctor notified of this. Large bruise to right groin that is soft at this time. Doctor also notified of left foot feeling cooler temperature than right foot. Able to dopple pedal pulses. Ordered to continue to monitor. VSS.
--- NOTE | 2019-12-01 05:35 | PC.NURSE ---
TR band removed at 0500. Air was removed per order, however patient had blood oozing at times and air had to be put back in. No hematoma or oozing at this time. Dressing placed. Will monitor. Patient educated on post-cath activity restrictions and verbalized understanding.
[2019-12-01 05:44] LABS: Basophils # 0.1 10^3/uL (0.0-0.1); Basophils % 0.5 %; Eosinophils % 0.1 %; Hematocrit 39.3 % (37.0-47.0); Hemoglobin 12.3 g/dL (11.5-15.3); Lymphocytes # 1.4 10^3/uL (0.8-4.8); Mean Corpuscular HGB Conc 31.3 g/dL (30.0-36.0); Mean Corpuscular Hemoglobin 28.5 pg (28.0-34.0); Mean Platelet Volume 11.6 fL (7.4-10.4); Monocytes # 0.8 10^3/uL (0.2-0.9); Monocytes % 4.5 %; Neutrophils # 15.44 10^3/uL (1.8-7.7); Neutrophils % 86.4 %; Nucleated Red Blood Cells % 0 %; Platelet Count 234 10^3/cmm (130-400); Red Blood Count 4.32 10^6/uL (4.1-5.3); Red Cell Distribution Width 13.9 % (12.1-15.1); White Blood Count 17.9 10^3/uL (4.0-10.0)
[2019-12-01 05:49] LABS: INR 1.01 (0.8-1.2)
[2019-12-01 05:50] LABS: Partial Thromboplastin Time 24.4 SECONDS (23.9-36.7)
--- NOTE | 2019-12-01 06:16 | PC.NURSE ---
Right wrist site still WNL. Right hand warm. No bleeding or hematoma. Radial pulse present. VSS. Right groin site still has large bruise, but is soft with no new hematoma or bleeding. Pedal pulse present by Doppler.
--- NOTE | 2019-12-01 08:30 | PC.NURSE ---
Dr. Bazan notified patient has crackles in Bilateral lower lobes upon auscultation. Patient states she feels slightly SOB. Physician gave telephone order to administer Lasix 20 mg IVP, RBTO. Nurse to continue to [facility].
--- NOTE | 2019-12-01 08:58 | PC.CHAP ---
Pastoral Care Encounter/Spiritual Assessment Type of Contact [] Declined used equipment sales representative visit [] Patient/Family/Request visit [] Outpatient visit [] Follow-up visit [] Physician referral [] Code/Alert [x] Routine visit [] Staff referral [] Actively dying [] Patient sleeping [] Family support [] [] Out of room [] Palliative care [] [] Receiving care in room [] Pre-surgical visit [] Trauma [] Long length of stay [] ICU visit [] Other: Relational/Emotional Strength [] Patient feels connected with others/family/visitors/staff [] Distress [] Loneliness/isolation [] Abandonment Spirituality of Patient [] Person of Elvia [] Attends Jew of their Elvia [] Believes in Prayer [] Reads Bible or Methodist materials [] There are Spiritual issues to be addressed Paperhanger And Painter Interventions [x] Prayer [x] Active listening [x] Non-anxious presence [x Spiritual/emotional support [] Crisis/trauma care [] Spiritual counseling [] Bereavement support [] Provided bereavement packet [] Provided Bible/devotional materials [] Provided toy/stuffed animal, coloring book to patient or family member [] Provided Communion [] Anointing/[place] [] Salvation [x] Completed spiritual assessment [] Other: Impact on Illness or Injury [] Angry [] Fearful [] Anxious [] Often cries [] Exhaustion [] Unable to work [] Unable to attend adventist [] Unable to walk/stand [] Unable to read [] Unable to drive [] Unable to eat/drink [] Unable to sleep [] Unable to be with family [] Patient intubated [] Other: Summary patient tired Time spent with patient 5 min
[2019-12-01] MEDS: metoprolol tartrate 50 mg Tablet PO (09:40)
[2019-12-01] MEDS: clopidogrel 75 mg Tablet PO (09:41)
[2019-12-01] MEDS: aspirin 81 mg EC Tablet PO (09:42)
[2019-12-01] MEDS: FUROsemide 10 mg/mL SDV 2mL 20 MG IVP (09:42)
--- NOTE | 2019-12-01 10:18 | PM.PN ---
Subjective Subjective: Interval history: Patient is doing well. She denies any complaints of chest pain, shortness of breath or palpitations. Repeat EKG shows resolution of ST segments. Echocardiogram done today shows normal LV systolic function without any regional wall motion abnormalities. She had developed hematoma in the right femoral artery access site that has mostly resolved today. Hemoglobin has stayed stable. She is widely stable. Vitals/I&O/Wt Last Vital Signs Temp 97.9 F 12/01/19 07:31 Pulse 93 12/01/19 07:31 Resp 23 H 12/01/19 07:31 BP 110/62 12/01/19 07:31 Pulse Ox 96 12/01/19 07:31 11/30/19 12/01/19 12/01/19 22:59 06:59 14:59 Intake Total 1077.175 / 7858.227 8252.1 / 2297.275 240 / 240 Output Total 1999 Balance 1077.175 / 1077.175 -779.9 / 297.275 240 / 240 Weight last 48 hrs Weight 130 lb Physical Exam Narrative: EXAM NARRATIVE: GENERAL: Patient is alert, awake and oriented x3. [] NECK: No jugular vein distension. [] HEENT: No cyanosis. No icterus. No pallor. [] HEART: Regular S1 and S2. No murmur, rub or gallop. [] LUNGS: Clear to auscultate bilaterally. [] ABDOMEN: Soft, nontender and nondistended. Positive bowel sounds. No guarding, rebound or tenderness. [] CENTRAL NERVOUS SYSTEM: Grossly nonfocal. [] EXTREMITIES: Lower extremities with no edema bilaterally. Pulses palpable in the lower extremities, both dorsalis pedis and posterior tibial. Right groin has small sized hematoma with associated skin bruising [] Urinary Catheter Management^: Michel Latex: Cath Placed During This Visit: yes Reason for Continuing Indwelling Catheter: Required Immobilization for Trauma or Surgery or Anesthesia Urinary Catheter Date of Insertion: 11/30/19 Urinary Catheter Time of Insertion: 18:32 Data : 12/01/19 05:32 12/01/19 01:56 A&P Assessment and plan (1) Unstable angina: Status: Acute (2) Coronary artery disease: Status: Acute (3) Hypertension: Status: Acute (4) Hyperlipidemia: Status: Acute (5) Tobacco abuse: Status: Acute (6) Coronary stent thrombosis: Patient underwent successful revascularization with DESx 1. Patient left laborer tree tapping in stable condition. On the floor, she started complaining of chest pain. An emergent EKG was obtained that showed ST elevation in the anterior leads. section laborer was activated and patient was taken to the laborer tree tapping emergently. Coronary angiogram showed occlusion of LAD at the distal edge of the stent. After crossing the occlusion with a guidewire, angiogram showed possible dissection at the distal edge of stent. Mechanism of vessel closure was stent thrombosis vs stent distal edge dissection. 2 more stents were put to cover the dissection completely. At the end of procedure, patient's chest pain resolved. Vessel had RANJIT 3 flow, no residual stenosis. I called cardiothoracic surgery and discussed the case with Dr Watkins who agreed with the management. Patient left laborer tree tapping in stable condition. Overnight she had hematoma and right groin which has significantly decreased in size now. She has stayed vitally stable with normal hemoglobin. She is asymptomatic now. EF is normal on echocardiogram this morning. Continue aspirin and Plavix. Smoking cessation strongly advised. High intensity statin therapy. Beta-yuniel and lisinopril. We will keep patient in cardiac stepdown unit for 1 more day. Likely discharge tomorrow. Status: Acute Attestations Medical Necessity Statement*: Care expected to cross 2 midnights. Patient status post revascularization for unstable angina complicated by acute stent thrombosis versus distal stent dissection causing abrupt vessel closure. Now completely revascularized. Coding Level of Care Code Acute Dialysis Registered Nurse for g Fwd Diagnoses Unstable angina I20.0 Coronary artery disease I25.10 Hypertension I10 Hyperlipidemia E78.5 Tobacco abuse Z72.0 Coronary stent thrombosis T82.867A
--- NOTE | 2019-12-01 11:40 | PC.NURSE ---
Dr. Bazan updated on patient condition. When nurse got patient up to ambulate following completion of bedrest requirement, the patient experienced orthostatic hypertension, HR increased to 130s-140s Sinus Tach. Patient became diaphoretic, dizzy and nauseated. Patient was assisted back to bed, laying flat. VS returned to normal limits. HR 80s, BP 110/76. No new orders received. Femoral access asymptomatic. Nurse to continue to monitor.
--- NOTE | 2019-12-01 13:13 | ECG_ITS ---
[facility] Test Date: 2019-12-01 Pat Name: Ness Nesbitt Department: Room: 105 Gender: Female Safety Sealer: : 1955 Requested By: Dmitry Bazan Order Number: [id number] Farhat MD: Dmitry Bazan M.D. Measurements Intervals [place] Rate: 73 P: 56 ND: 127 QRS: 27 QRSD: 87 T: 43 QT: 414 QTc: 458 Interpretive Statements SINUS RHYTHM MARKED T-WAVE ABNORMALITY, CONSIDER ANTEROLATERAL ISCHEMIA [-0.5+ mV T WAVE IN I/aVL/V3-V6] Compared to ECG 12/01/2019 03:40:33 Short ND interval no longer present T-wave abnormality still present Possible ischemia still present Electronically Signed On 12-03-2019 20:58:45 CDT by Dmitry Bazan M.D. [email or web address] Pharmaceuticalscent[facility].[employer]/store/[id number]
--- NOTE | 2019-12-01 13:41 | PC.NURSE ---
Patient developed ST depression on telemetry. 12 Lead EKG obtained. BP 101/54 HR 85, patient states she is continually tired. Physician gave telephone order to repeat CBC and BMP, continue to monitor. RBTO.
[2019-12-01 14:35] LABS: Basophils # 0.1 10^3/uL (0.0-0.1); Basophils % 0.3 %; Eosinophils % 0.2 %; Hematocrit 36.6 % (37.0-47.0); Hemoglobin 11.8 g/dL (11.5-15.3); Lymphocytes # 2.4 10^3/uL (0.8-4.8); Lymphocytes % 12.7 %; Mean Corpuscular HGB Conc 32.2 g/dL (30.0-36.0); Mean Corpuscular Hemoglobin 28.8 pg (28.0-34.0); Mean Corpuscular Volume 89.3 fL (81-99); Mean Platelet Volume 11.6 fL (7.4-10.4); Monocytes # 1.2 10^3/uL (0.2-0.9); Monocytes % 6.5 %; Neutrophils # 14.73 10^3/uL (1.8-7.7); Neutrophils % 79.5 %; Nucleated Red Blood Cells % 0 %; Platelet Count 249 10^3/cmm (130-400); Red Cell Distribution Width 14.1 % (12.1-15.1); White Blood Count 18.5 10^3/uL (4.0-10.0)
[2019-12-01 14:53] LABS: Anion Gap 15.9 (5-19); Blood Urea Nitrogen 18 mg/dL (8-23); Calcium 9.3 mg/dL (8.5-10.5); Carbon Dioxide 26 mmol/L (22-29); Chloride 104 mmol/L (98-107); Glucose 144 mg/dL (65-115); Osmolality Calculated 298 mOsm/kg (285-295); Potassium 3.9 mmol/L (3.5-5.1); Sodium 142 mmol/L (136-145)
--- NOTE | 2019-12-01 17:21 | PC.NURSE ---
Metoprolol administration clarified with Dr. Bazan. Patient BP 94/52 HR 80s. Physician gave telephone order to decrease dose to 12.5 mg BID. Reassess BP at 1900, if SBP>100, give metoprolol, RBTO. Nurse to continue to monitor.
[2019-12-01] MEDS: metoprolol tartrate 25 mg Tablet 12.5 MG PO (19:23)
[2019-12-01] MEDS: atorvastatin 40 mg Tablet PO (19:23)
--- NOTE | 2019-12-01 22:51 | USCV_ITS ---
Ness Nesbitt Age: 64 Gender: F : 1955 Exam Date: 12/01/2019 06:22 Ordering Phys: Dmitry Bazan M.D Technologist: Karen Schaffer Exam Location: [facility] [place] Indication: Unstable angina BP: 125 / 65 HR: 76 Rhythm: Sinus Technical Quality: Suboptimal MEASUREMENTS (Male / Female) Normal Values 2D ECHO LV Diastolic Diameter PLAX 2.8 cm 4.2 - 5.9 / 3.9 - 5.3 cm LV Systolic Diameter PLAX 1.7 cm LV Chamber Size 2.4 cm IVS Diastolic Thickness 1.5 cm 0.6 - 1.0 / 0.6 - 0.9 cm IVS Systolic Thickness 1.5 cm LVPW Diastolic Thickness 0.9 cm 0.6 - 1.0 / 0.6 - 0.9 cm LVPW Systolic Thickness 1.2 cm RV Chamber Size 1.5 cm LVOT Diameter 1.8 cm LV Ejection Fraction 2D Teich 72.1 % LA Diameter 2.3 cm LA Width 2.3 cm LA Height 3.4 cm RA Width 1.6 cm RA Height 3.1 cm Aorta at Sinotubular Diameter 1.9 cm M-MODE LV Diastolic Diameter MM 3.3 cm 4.2 - 5.9 / 3.9 - 5.3 cm LV Systolic Diameter MM 1.7 cm LV Ejection Fraction MM Teich 81.7 % IVS Diastolic Thickness MM 0.8 cm 0.6 - 1.0 / 0.6 - 0.9 cm IVS Systolic Thickness MM 1.0 cm LVPW Diastolic Thickness MM 0.9 cm 0.6 - 1.0 / 0.6 - 0.9 cm LVPW Systolic Thickness MM 1.4 cm RV Diastolic Diameter MM 1.3 cm Aortic Annulus Diameter 2.8 cm LA Ao Ratio MM 1.0 MV E Point Septal Separation 0.7 cm DOPPLER AV Peak Velocity 132.0 cm/s LVOT Peak Velocity 104.0 cm/s AV Area Cont Eq vti 2.0 cm squared AV Area Cont Eq pk 1.9 cm squared MV Area PHT 2.7 cm squared Mitral E to A Ratio 0.5 MV E' Velocity 21.0 cm/s Mitral E to MV E' Ratio 7.3 Mitral E to LV E' Lateral Ratio 9.7 Mitral E to LV E' Septal Ratio 5.8 TV Peak E Velocity 58.0 cm/s Right Atrial Pressure 3.0 mmHg PV Peak Velocity 153.0 cm/s RV Acceleration Time 0.1 s RV Ejection Time 0.3 s RV AcT/ET 0.3 FINDINGS Left Ventricle Normal left ventricular size, systolic function and wall thickness, with no regional wall motion abnormalities. LVEF is 55 to 60%. Moderate LVH is noted. Grade 1 diastolic dysfunction with normal filling pressures. Right Ventricle The right ventricle is normal in size and function. Right Atrium The right atrium is normal in size. Left Atrium The left atrium is normal in size. Mitral Valve Structurally normal mitral valve without significant stenosis or prolapse. There is no mitral regurgitation. Aortic Valve Not well visualized. No significant sclerosis or stenosis. There is no aortic regurgitation. Tricuspid Valve Structurally normal tricuspid valve without significant stenosis or regurgitation. Insufficient TR jet to calculate RVSP. RA pressure is 0 to 5 mmHg. Pulmonic Valve Structurally normal pulmonic valve without significant stenosis. There is no pulmonic regurgitation. Pericardium Normal pericardium without effusion. Aorta Normal ascending aorta dimension. CONCLUSIONS This is a limited quality echocardiogram. LV systolic function is normal with EF 55 to 60%. No regional wall motion abnormalities are noted. Grade 1 diastolic dysfunction is present. No comparison studies are available. Dmitry Bazan MD (Electronically Signed) Final Date: 01 December 2019 09:09 S
--- NOTE | 2019-12-02 01:40 | PC.NURSE ---
Patient is currently resting with eyes closed. Will monitor.
[2019-12-02 03:58] VITALS: BP 115/53; PULSE 82; RESP 16; TEMP 36.8; O2SAT 94
--- NOTE | 2019-12-02 04:05 | PC.NURSE ---
Patient ambulated to toilet and back to bed with stand by assist and did not have dizziness.
[2019-12-02 07:31] VITALS: BP 127/55; PULSE 94; RESP 20; TEMP 36.6; O2SAT 95
[2019-12-02] MEDS: metoprolol tartrate 25 mg Tablet 12.5 MG PO (08:25)
[2019-12-02] MEDS: clopidogrel 75 mg Tablet PO (08:26)
[2019-12-02] MEDS: aspirin 81 mg EC Tablet PO (08:26)
--- NOTE | 2019-12-02 09:02 | PM.DCS ---
Discharge Providers Date of Admission: 11/30/19 11:29 Date of Discharge: December 02, 2019 Attending Provider at Admission: Dmitry Bazan M.D Attending Provider at Discharge: Dmitry Bazan M.D Diagnoses at Discharge Discharge Diagnosis (1) Unstable angina: Status: Resolved (2) Coronary artery disease: Status: Acute (3) Hypertension: Status: Acute (4) Hyperlipidemia: Status: Acute (5) Tobacco abuse: Status: Acute (6) Occlusion of LAD (left anterior descending) artery: Status: Acute Problem details: Secondary to distal edge dissection from recently placed stent. Reason for Visit Reason for Visit: chest pain Brief History: 64-year-old female with past medical history of coronary artery disease with OM stent in place, hyperlipidemia and hypertension presented to the hospital with worsening typical chest pain. She was not able to do any activity without experiencing chest pain and on day of admission was having severe substernal chest pain radiating to the jaw. Troponins were normal. An unstable angina she was taken emergently to [facility]. Hospital Course Hospital Course: 64-year-old female with past medical history of coronary artery disease with OM stent in place, hyperlipidemia and hypertension presented to the hospital with worsening typical chest pain. She was not able to do any activity without experiencing chest pain and on day of admission was having severe substernal chest pain radiating to the jaw. Troponins were normal. An unstable angina she was taken emergently to [facility]. On coronary angiography she was found to have severe 95% proximal LAD stenosis and 70 to 80% stenosis of first diagonal artery which was small to medium sized. PCI of proximal LAD was performed using a 3.0 drug-eluting stent. Patient left the [facility] Systems Design [facility] in a stable condition. About 30 minutes post procedure she started experiencing substernal severe chest pain associated with nausea and vomiting. Emergent EKG was performed that showed ST elevation in anterior leads. [facility] Systems Design Engineer was activated and patient was emergently taken back to [facility]. Coronary angiography showed patent recently placed stent however at distal edge of stent there was complete occlusion of LAD. Intimal flap was visible at distal edge of the stent. Abrupt vessel closure was likely secondary to distal edge dissection from recently placed stent. 2 more stents were placed to cover the dissection completely. RANJIT-3 flow was restored leading to resolution of patient's chest pain and ST segment elevations. Echocardiogram performed next day showed preserved LV function without any significant wall motion abnormalities. Patient stayed in the hospital for 2 days and was stable without any symptoms at time of discharge. Physical Exam Narrative: EXAM NARRATIVE: GENERAL: Patient is alert, awake and oriented x3. [] NECK: No jugular vein distension. [] HEENT: No cyanosis. No icterus. No pallor. [] HEART: Regular S1 and S2. No murmur, rub or gallop. [] LUNGS: Clear to auscultate bilaterally. [] ABDOMEN: Soft, nontender and nondistended. Positive bowel sounds. No guarding, rebound or tenderness. [] CENTRAL NERVOUS SYSTEM: Grossly nonfocal. [] EXTREMITIES: Lower extremities with 1+ edema bilaterally. Pulses palpable in the lower extremities, both dorsalis pedis and posterior tibial. [] Urinary Catheter Management^: Michel Latex: Cath Placed During This Visit: yes, but has since been removed by the nurse Reason for Continuing Indwelling Catheter: Decision to DC Catheter Urinary Catheter Date of Insertion: 11/30/19 Urinary Catheter Time of Insertion: 18:32 Date Urinary Catheter Removed: 12/01/19 Time Urinary Catheter Discontinued: 12:00 Discharge Data Data Completed and Pending: Completed Studies During Hospitalization Category Date Time Status XR chest 1V neo ble [id number] Stat Exams 11/30/19 10:02 Completed CV echo complete* [id number] Routine Ultrasound 12/01/19 22:51 Completed Pending at discharge Category Date Time Status INSPECTOR LINE request for service Routin e Exams 11/30/19 16:14 Taken INSPECTOR LINE request for service Routin e Exams 11/30/19 18:14 Taken Labs from last 24 hours 12/01/19 12/01/19 14:24 14:24 WBC 18.5 H RBC 4.10 Hgb 11.8 Hct 36.6 L MCV 89.3 MCH 28.8 MCHC 32.2 RDW 14.1 Plt Count 249 MPV 11.6 H Neut % (Auto) 79.5 Lymph % (Auto) 12.7 [place] % (Auto) 6.5 Eos % (Auto) 0.2 Baso % (Auto) 0.3 Neut # (Auto) 14.73 H Lymph # (Auto) 2.4 [place] # (Auto) 1.2 H Eos # (Auto) 0.0 Baso # (Auto) 0.1 Nucleated RBC % (a uto) 0 Nucleated RBCs # 0.0 Sodium 142 Potassium 3.9 Chloride 104 Carbon Dioxide 26 Anion Gap 15.9 BUN 18 Creatinine 0.8 GFR Calculation 72.0 L Glucose 144 H Calculated Osmolal ity 298 H Calcium 9.3 Vitals: Last Vital Signs Temp 97.9 F 12/02/19 07:31 Pulse 94 12/02/19 07:31 Resp 20 H 12/02/19 07:31 BP 127/55 12/02/19 07:31 Pulse Ox 95 12/02/19 07:31 Discharge Plan Discharge Patient Disposition: Home Condition: Stable Prescriptions: New atorvastatin 40 mg Tablet 40 mg PO BEDTIME Qty: 90 RF: 3 clopidogrel 75 mg Tablet 75 mg PO DAILY Qty: 90 RF: 3 aspirin 81 mg Tablet,Delayed Release (Dr/Ec) 81 mg PO DAILY Qty: 90 RF: 3 metoprolol tartrate 25 mg Tablet 12.5 mg PO BID Qty: 90 RF: 3 lisinopril 2.5 mg tablet 2.5 mg PO DAILY Qty: 60 RF: 3 Discharge Orders: Discharge Order (Routine); Ordered 12/02/19 Ordered By: Dmitry Bazan Referrals: Dmitry Bazan M.D [Physician] - 1 month (You have a follow-up with Dr. Bazan on January 12, 2020 at 3:00pm. If you can't make this appointment and need to reschedule please call them at [phone].) Joycelyn Mathew FNP [Nurse Practitioner] - 7-10 days (You have a follow-up with Joycelyn Matehw on December 09, 2019 at 10:45am. If you can't make this appointment and need to reschedule please call them at [phone].) Discharge Diet: Cardiac Discharge Activity: Increase activity as tolerated Patient Instructions: Metoprolol (By mouth), Lisinopril (By mouth), Aspirin (By mouth), Atorvastatin (By mouth), Clopidogrel (By mouth), Left Heart Catheterization (DC), Coronary Angioplasty (DC), Post Angiogram Home Care Instructions Activity Restrictions/Additional Instructions: Please do not lift weight more than 5 pounds for the next 5 days Discharge Date/Time: 12/02/19 10:25 Discharge Attestations Time Spent in Discharge Care*: greater than 30 min Quality Metrics Clinical Quality Measures During this hospital stay, did patient experience: AMI Clinical Trial Participant: No Contraindication to aspirin (AMI): Aspirin given Contraindication to statin: Statin prescribed Contraindication to PCI: PCI performed Contraindication to Fibrinolytics: Alternative treatment initiated Coding Level of Care Code Acute Blueprint Cutter for Edin Fwd Diagnoses Unstable angina I20.0 Coronary artery disease I25.10 Hypertension I10 Hyperlipidemia E78.5 Tobacco abuse Z72.0 Occlusion of LAD (left anterior descending) artery I24.0
[2019-12-02 09:28] VITALS: BP 127/55; PULSE 94; RESP 20; TEMP 36.6; O2SAT 95
--- NOTE | 2019-12-02 15:33 | PC.RESP ---
Smoking Cessation information sent to patient.
== END 2019-12-02 10:25 | disposition home or self-care (01) | DRG 246 ==
LOC: ER 12:46 → CSU 14:27
PROVIDERS: Family Medicine; Admitting Provider Internal Medicine; Visit Provider Internal Medicine
PROC: 027036Z Dilation of Coronary Artery, One Artery with Three Drug-eluting Intraluminal Devices, Percutaneous Approach (ICD-10-PCS; principal; 2019-11-30 16:00)
PROC: 027036Z Dilation of Coronary Artery, One Artery with Three Drug-eluting Intraluminal Devices, Percutaneous Approach (ICD-10-PCS; 2019-11-30 18:10)
DX: I25.110 Atherosclerotic heart disease of native coronary artery with unstable angina pectoris (principal); I21.A9 Other myocardial infarction type; I97.190 Other postprocedural cardiac functional disturbances following cardiac surgery; T82.867A Thrombosis due to cardiac prosthetic devices, implants and grafts, initial encounter; F17.210 Nicotine dependence, cigarettes, uncomplicated; I10 Essential (primary) hypertension; E78.5 Hyperlipidemia, unspecified; Y71.1 Therapeutic (nonsurgical) and rehabilitative cardiovascular devices associated with adverse incidents
CPT/HCPCS: 12345; 36415; 51702; 71045; 80048; 80053; 84484; 85025; 85347; 85610; 85730; 93005; 93306; 93454; 96372; 96375; 99282; C1725; C1769; C1874; C1887; C1894; C9600; J1644; J1650; J1940; J2250; J2270; J2405; J3010; J3246; J3490; J7030; J7050; Q0163; Q9967

== ENCOUNTER → 2019-12-09 11:52 | Outpatient (BNVA) | payer MEDICAID, SELFPAY | PROVIDERS: Visit Provider Nurse Practitioner Family | DX: I25.110 Atherosclerotic heart disease of native coronary artery with unstable angina pectoris (principal) | CPT/HCPCS: 80048 ==